=== PATIENT | male | born 1990 | race Caucasian/White ===

== ENCOUNTER 2022-11-23 21:38 | Emergency (ER) | payer OTHER, SELFPAY ==
[2022-11-23 22:06] VITALS: BP 137/104; PULSE 100; RESP 18; TEMP 36.6; O2SAT 96; BMI 50.1
--- NOTE | 2022-11-23 22:42 | DI.RAD.S_ITS ---
PROCEDURE: XR CHEST 1V INDICATIONS: suspected sepsis TECHNIQUE: One view of the chest was acquired. COMPARISON: None. FINDINGS: Surgical changes and devices: None. Lungs and pleura: There are low lung volumes with probable vascular crowding. No focal consolidation. No pleural effusions or pneumothorax. Mediastinum: Mediastinal contours appear normal. Heart size is normal. Bones and chest wall: No suspicious bony lesions. There are old posttraumatic changes of the distal right clavicle and acromioclavicular joint. Overlying soft tissues appear unremarkable. IMPRESSION: 1. Low lung volumes without definite acute cardiopulmonary disease. Dictated by: Ramsey Cohen M.D. on 11/24/2022 at 0:20 Approved by: Ramsey Cohen M.D. on 11/24/2022 at 0:21
[2022-11-23 22:53] VITALS: PULSE 108; RESP 23
[2022-11-23 22:55] VITALS: BP 145/99; PULSE 106; RESP 21; O2SAT 96
[2022-11-23 23:00] VITALS: PULSE 102; O2SAT 94
[2022-11-23 23:01] VITALS: BP 119/74; PULSE 101; RESP 23; O2SAT 94
[2022-11-23 23:30] VITALS: PULSE 112; RESP 20
[2022-11-23] MEDS: SODIUM CHLORIDE 0.9% 1,000 ML 1000 ML IV (23:42)
[2022-11-23 23:47] LABS: Add Manual Diff / Slide Review NO; Basophils Absolute Auto 100 /uL (0-100); Basophils Percent Auto 0.6 % (0-2); Eosinophils Absolute Auto 100 /uL (0-450); Eosinophils Percent Auto 0.6 % (2-4); Hematocrit 47.3 % (41-53); Hemoglobin 16.3 g/dL (13.5-17.5); Lymphocytes Absolute Auto 2600 /uL (1100-4500); Lymphocytes Percent Auto 16.5 % (25-40); Mean Corpuscular HGB Conc 34.5 % (30-36); Mean Corpuscular Hemoglobin 31.5 PG (26-34); Mean Corpuscular Volume 91.3 fL (80-100); Monocytes Absolute Auto 1500 /uL (0-900); Monocytes Percent Auto 9.5 % (3-14); Neutrophils Absolute Auto 11600 /uL (1500-7000); Neutrophils Percent Auto 72.8 % (50-75); Platelet Count 351 X10^3/uL (150-400); Red Blood Cell Count 5.18 X10^6/uL (4.5-5.9); Red Cell Distribution Width 13.4 % (11.6-14.8); White Blood Cell Count 15.9 X10^3/uL (4.5-11.0)
[2022-11-23 23:49] LABS: INR 1.1 (0.9-1.3); Prothrombin Time 12.3 SECONDS (10.1-12.7)
[2022-11-23 23:52] LABS: PTT Partial Thromboplastin Tim 33 SECONDS (26-36)
[2022-11-23 23:56] LABS: Lactate (Lactic Acid) 0.9 mmol/L (0.7-2.1)
[2022-11-24] VITALS: PULSE 91; RESP 22
[2022-11-24 00:01] VITALS: BP 159/80; PULSE 90; RESP 15
[2022-11-24 00:18] LABS: Alanine Aminotransferase 47 IU/L (<50); Albumin 4.5 g/dL (3.5-5.0); Albumin Globulin Ratio 1.2 (1.0-2.8); Alkaline Phosphatase 101 U/L (38-126); Aspartate Aminotransferase 35 IU/L (17-59); BUN Creatinine Ratio 18.6 (6-22); Bilirubin Total 0.8 mg/dL (0.2-1.3); Blood Urea Nitrogen 16 mg/dL (9-20); Calcium 9.7 mg/dL (8.4-10.2); Carbon Dioxide 24 mmol/L (22-32); Chloride 101 mmol/L (98-107); Estimated Glomerular Filt Rate > 60 mL/min (>60); Globulin 3.9 g/dL (1.7-4.1); Glucose 110 mg/dL (70-100); HEMOLYSIS 30 (0-50); Lipase 48 U/L (23-300); Potassium 4.1 mmol/L (3.4-5.1); Sodium 135 mmol/L (137-145); Total Protein 8.4 g/dL (6.3-8.2)
[2022-11-24 00:30] VITALS: BP 161/86; PULSE 91; RESP 22
[2022-11-24 00:34] LABS: Procalcitonin 0.04 ng/mL (<0.5)
[2022-11-24 00:53] LABS: COVID19 -Nasal RAPID Negative (Negative)
[2022-11-24 01:00] VITALS: BP 155/83; PULSE 83; RESP 22
--- NOTE | 2022-11-24 01:29 | ED_ITS ---
HPI - Headache General Chief Complaint: Headache Stated Complaint: feels like body is really hot, nausea,headache Time Seen by Provider: 11/24/22 00:46 Mode of arrival: Ambulatory History of Present Illness HPI Narrative: Patient is a 32-year-old male without past medical history presenting today with 3-4 days of a mild headache worried however today while at work he got extremely hot. 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 He reports that it does get hot but he got very hot and he had worsening headache and threw up once. Reports that he was previously okay he does not have chest pain or cough no abdominal pain persistent nausea or vomiting. He denies any head pain. He is tried Tylenol and ibuprofen for his headache but does has not quite gotten rid of it it has been kind of a dull ache. Now in the ED after a L of fluid and Zofran he says that his headache is completely gone he has not felt this good in last couple of days is overall feeling better and ready able to go home. Related Data Allergies Allergy/AdvReac Type Severity Reaction Status Date / Time No Known Drug Allergies Allergy Verified 11/23/22 23:35 Review of Systems Review of Systems ROS Unobtainable: All systems reviewed & are unremarkable except as noted in HPI and below Patient History Social History Smoking Status: Current every day smoker Smoking Status: Current every day smoker Substance Use Type: marijuana Exam Initial Vital Signs Initial Vital Signs: Vital Signs Temperature 97.8 F 11/23/22 22:06 Pulse Rate 100 H 11/23/22 22:06 Respiratory Rate 18 11/23/22 22:06 Blood Pressure 137/104 H 11/23/22 22:06 Pulse Oximetry 96 11/23/22 22:06 Oxygen Delivery Method Room Air 11/23/22 22:06 GENERAL: Alert well-appearing 32-year-old male BMI 50 HEENT: Head atraumatic,EOMI, pupils reactive, face symmetric, moist mucous membranes NECK: No meningeal signs CARDIOVASCULAR: Regular rate and rhythm without murmurs, rubs or gallops. RESPIRATORY: Breath sounds equal bilaterally, no wheezes rales or rhonchi. ABDOMEN: Soft, nontender. Normoactive bowel sounds all 4 quadrants. No guarding or rebound. EXTREMITIES: Normal range of motion, no clubbing or edema. Neurovascularly intact NEUROLOGICAL: Alert and oriented x4. SKIN: Warm, dry, no laceration, no petechiae, no rashes or lesions. Scores NIH Stroke Scale Level of Conciousness: Alert, keenly responsive Ask month/age: Answers both questions correctly. Open/close eyes, close hand: Performs both tasks correctly Best gaze horizontal: Normal Visual sam: No visual loss Facial palsy: Normal symetrical movement Left arm drift: No drift for full 10 sec Right arm drift: No drift for full 10 sec Left leg drift: No drift for full 5 sec Right leg drift: No drift for full 5 sec Limb ataxia: Absent Sensory on face/arms/legs: Normal, no sensory loss Best language: No aphasia, normal Dysarthria: Normal Extinction or inattention: No abnormality Total NIH Stroke scale score: 0 Course Orders Ordered: ED Orders 11/23/22 22:42 XR chest 1V Stat EKG-12 Lead Stat RT Consult Eval and Treat NOW 11/23/22 23:20 Complete Blood Count AUTO DIFF Stat Comprehensive Metabolic Panel Stat Lactate (Lactic Acid) Stat Lipase Stat PTT Partial Thromboplastin Edwin Stat Procalcitonin Stat Prothrombin Time INR Stat 11/23/22 23:40 Blood Culture Stat 11/24/22 00:34 COVID19 -Nasal RAPID Stat Discontinued Medications Sodium Chloride (Normal Saline 0.9%) 1,000 mls @ 1,000 mls/hr IV BOLUS ONE Stop: 11/23/22 23:41 Last Infusion: 11/24/22 01:00 Dose: 0 mls/hr Documented By: Admin: 11/23/22 23:42 Dose: 1,000 mls/hr Documented By: FLORENTIN Ondansetron HCl (Ondansetron 4 Mg/2 Ml Inj) 4 mg IV NOW PRN PRN Reason: Nausea And Vomiting Ondansetron HCl (Ondansetron 4 Mg Odt) 4 mg SL NOW PRN PRN Reason: Nausea And Vomiting Vital Signs Vital signs: Vital Signs - 8 hr 11/23/22 22:06 11/23/22 22:53 11/23/22 22:55 Temperature 97.8 F Pulse Rate 100 H 108 H Respiratory Rate 18 23 Blood Pressure 137/104 H 145/99 H Pulse Oximetry 96 Oxygen Delivery Method Room Air 11/23/22 22:55 11/23/22 22:55 11/23/22 23:00 Temperature Pulse Rate 106 H 102 H Respiratory Rate 21 Blood Pressure 145/99 H Pulse Oximetry 96 94 Oxygen Delivery Method 11/23/22 23:01 11/23/22 23:01 11/23/22 23:30 Temperature Pulse Rate 101 H 112 H Respiratory Rate 23 20 Blood Pressure 119/74 Pulse Oximetry 94 Oxygen Delivery Method 11/24/22 00:00 11/24/22 00:01 11/24/22 00:01 Temperature Pulse Rate 91 H 90 Respiratory Rate 22 15 Blood Pressure 159/80 H Pulse Oximetry Oxygen Delivery Method 11/24/22 00:30 11/24/22 00:30 11/24/22 01:00 Temperature Pulse Rate 91 H Respiratory Rate 22 Blood Pressure 161/86 H 155/83 H Pulse Oximetry Oxygen Delivery Method 11/24/22 01:00 11/24/22 01:30 11/24/22 01:31 Temperature Pulse Rate 83 85 Respiratory Rate 22 25 H Blood Pressure 144/88 H Pulse Oximetry Oxygen Delivery Method 11/24/22 01:31 Temperature Pulse Rate 89 Respiratory Rate 22 Blood Pressure Pulse Oximetry Oxygen Delivery Method MDM - Headache Lab Data 11/23/22 23:20 11/23/22 23:20 Labs: Lab Results 11/23/22 11/23/22 11/23/22 Range/Units 23:20 23:20 23:20 WBC 15.9 H (4.5-11.0) X10^3/uL RBC 5.18 (4.5-5.9) X10^6/uL Hgb 16.3 (13.5-17.5) g/dL Hct 47.3 (41-53) % MCV 91.3 (80-100) fL MCH 31.5 (26-34) PG MCHC 34.5 (30-36) % RDW 13.4 (11.6-14.8) % Plt Count 351 (150-400) X10^3/uL Neut % (Auto) 72.8 (50-75) % Lymph % (Auto) 16.5 L (25-40) % [place] % (Auto) 9.5 (3-14) % Eos % (Auto) 0.6 L (2-4) % Baso % (Auto) 0.6 (0-2) % Neut # (Auto) 03192 H (6339-3539) /uL Lymph # (Auto) 2600 (3862-6917) /uL [place] # (Auto) 1500 H (0-900) /uL Eos # (Auto) 100 (0-450) /uL Baso # (Auto) 100 (0-100) /uL PT 12.3 (10.1-12.7) SECONDS INR 1.1 (0.9-1.3) APTT 33 (26-36) SECONDS Sodium 135 L (137-145) mmol/L Potassium 4.1 (3.4-5.1) mmol/L Chloride 101 (98-107) mmol/L Carbon Dioxide 24 (22-32) mmol/L BUN 16 (9-20) mg/dL Creatinine 0.86 (0.66-1.25) mg/dL Estimated GFR > 60 (>60) mL/min BUN/Creatinine Ratio 18.6 (6-22) Glucose 110 H (70-100) mg/dL Lactate (0.7-2.1) mmol/L Calcium 9.7 (8.4-10.2) mg/dL Total Bilirubin 0.8 (0.2-1.3) mg/dL AST 35 (17-59) IU/L ALT 47 (<50) IU/L Alkaline Phosphatase 101 (38-126) U/L Total Protein 8.4 H (6.3-8.2) g/dL Albumin 4.5 (3.5-5.0) g/dL Globulin 3.9 (1.7-4.1) g/dL Albumin/Globulin Ratio 1.2 (1.0-2.8) Lipase 48 (23-300) U/L Procalcitonin 0.04 (<0.5) ng/mL SARS-CoV-2 (PCR) (Negative) 11/23/22 11/24/22 Range/Units 23:20 00:34 WBC (4.5-11.0) X10^3/uL RBC (4.5-5.9) X10^6/uL Hgb (13.5-17.5) g/dL Hct (41-53) % MCV (80-100) fL MCH (26-34) PG MCHC (30-36) % RDW (11.6-14.8) % Plt Count (150-400) X10^3/uL Neut % (Auto) (50-75) % Lymph % (Auto) (25-40) % [place] % (Auto) (3-14) % Eos % (Auto) (2-4) % Baso % (Auto) (0-2) % Neut # (Auto) (8479-9154) /uL Lymph # (Auto) (0249-7664) /uL [place] # (Auto) (0-900) /uL Eos # (Auto) (0-450) /uL Baso # (Auto) (0-100) /uL PT (10.1-12.7) SECONDS INR (0.9-1.3) APTT (26-36) SECONDS Sodium (137-145) mmol/L Potassium (3.4-5.1) mmol/L Chloride (98-107) mmol/L Carbon Dioxide (22-32) mmol/L BUN (9-20) mg/dL Creatinine (0.66-1.25) mg/dL Estimated GFR (>60) mL/min BUN/Creatinine Ratio (6-22) Glucose (70-100) mg/dL Lactate 0.9 (0.7-2.1) mmol/L Calcium (8.4-10.2) mg/dL Total Bilirubin (0.2-1.3) mg/dL AST (17-59) IU/L ALT (<50) IU/L Alkaline Phosphatase (38-126) U/L Total Protein (6.3-8.2) g/dL Albumin (3.5-5.0) g/dL Globulin (1.7-4.1) g/dL Albumin/Globulin Ratio (1.0-2.8) Lipase (23-300) U/L Procalcitonin (<0.5) ng/mL SARS-CoV-2 (PCR) Negative (Negative) Urine Dip Bedside Urine Glucose Negative Bedside Urine Bilirubin - Negative Bedside Urine Ketone - Negative Urine Specific [place] 1.015 Bedside Urine Occult Blood - Negative Bedside Urine pH 6.0 Bedside Urine Protein - Negative Bedside Urine Urobilinogen - Negative Imaging Data Chest x-ray: Radiologist's Impression: PROCEDURE:? XR CHEST 1V ? INDICATIONS:? suspected sepsis ? TECHNIQUE:? One view of the chest was acquired.? ? COMPARISON:? None. ? FINDINGS:? ? Surgical changes and devices:? None.? ? Lungs and pleura:? There are low lung volumes with probable vascular crowding.? No focal consolidation.? No pleural effusions or pneumothorax.? ? Mediastinum:? Mediastinal contours appear normal.? Heart size is normal.? ? Bones and chest wall:? No suspicious bony lesions.? There are old posttraumatic changes of the distal right clavicle and acromioclavicular joint.? Overlying soft tissues appear unremarkable.? ? IMPRESSION:? ? 1.? Low lung volumes without definite acute cardiopulmonary disease. ? ? Dictated by: Ramsey Cohen M.D. on 11/24/2022 at 0:20 ? ? Approved by: Ramsey Cohen M.D. on 11/24/2022 at 0:21 ? ECG Data Interpretation: Normal sinus rhythm rate 89 PA interval 180 QRS [address] changes or T- wave inversions MDM Narrative Medical decision making narrative: Patient there year old male presents today with headache none go last couple of days. Worsening today when he got hot at work. He is afebrile here in the ED mildly pruritic. No evidence of meningeal signs. He actually looks really great his headache improved after 1 L of fluid and Zofran. Blood work does show leukocytosis of 15 with thought to be related to stress. No evidence of infection he does not have COVID x-rays clear. At this time either likely related to heat or viral illness. 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 Discussed with him supportive care only he is given 1 day off work. He really does not have evidence of sepsis or severe sepsis. Discharge Plan Departure Patient Disposition: Home Clinical Impression: Headache Instructions: DI for Headache Activity Restrictions/Additional Instructions: *You have been diagnosed with headache *What to do: At this time increase fluids as tolerated please go home and get some rest *Continue to take medications as directed Tylenol 1000 mg every 6 hours if needed for [id number] pain Motrin 600 mg every 6 hours if needed for [id number] pain *Follow up with your primary care provider in 2-3 days or call [phone] *Return to ER if you should have increased headache fever chest pain shortness of breath or any new, worsening or concerning symptoms Stand Alone Forms: Patient Portal/API, Work Release Note
[2022-11-24 01:30] VITALS: PULSE 85; RESP 25
[2022-11-24 01:31] VITALS: BP 144/88; PULSE 89; RESP 22
== END 2022-11-24 02:19 | disposition home or self-care (01) ==
PROVIDERS: Emergency Provider Emergency Medicine
DX: R51.9 Headache, unspecified (principal); R79.89 Other specified abnormal findings of blood chemistry; Z20.822 Contact with and (suspected) exposure to COVID-19
CPT/HCPCS: 36415; 71045; 80053; 81003; 83605; 83690; 84145; 85025; 85610; 85730; 87040; 87635; 93005; 93010; 99284; C9803